=== PATIENT | female | born 2005 | race Caucasian/White ===

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

== ENCOUNTER 2023-09-02 20:08 | Emergency (ER) | payer MEDICAID, SELFPAY ==
[2023-09-02 20:21] VITALS: BP 94/62; PULSE 102; RESP 16; TEMP 36.3; O2SAT 98; BMI 29.5
--- NOTE | 2023-09-02 21:06 | W.ED.HEATRA ---
HPI - Head Injury General: Chief complaint: Head Injury Stated complaint: AHit Her Head Time Seen by Provider: 09/02/23 20:42 History of Present Illness: 18-year-old female comes in today for complaints of injury to the forehead. Patient endorses slipping in the bathroom and striking her head against a soap dish. Patient has no obvious injury to the forehead. Patient reports tenderness to central forehead. Patient denies headache or loss of consciousness. Patient resides at an assisted living facility. Review of Systems General: Reports: 10 or more systems reviewed and unremarkable except in HPI and below PFSH ED PFSH: Medical History Irritable bowel syndrome Chronic constipation Borderline personality disorder Intellectual disability Schizophrenia Surgical History No significant past surgical history Social History Smoking and tobacco/nicotine status: never used tobacco/nicotine Alcohol intake: never Physical Exam Const: COMMON NORMALS: alert HENMT: COMMON NORMALS: normocephalic and atraumatic HEAD & SCALP: normocephalic and atraumatic Neck/C-Spine: COMMON NORMALS: full ROM Resp: COMMON NORMALS: normal respiratory effort Cardio: COMMON NORMALS: regular rate RATE: regular rate Back/Pelvis: COMMON NORMALS: thoracic and lumbar spine normal to inspection Extremity: COMMON NORMALS: full ROM Neuro: SENSORIUM/ORIENTATION: Yes alert Skin: COMMON NORMALS: turgor normal GENERAL SKIN EXAM: turgor normal Course Vital Signs: Vital signs: Vital Signs Temperature 97.4 F L 09/02/23 20:21 Pulse Rate 101 H 09/02/23 21:23 Respiratory Rate 16 09/02/23 21:23 Blood Pressure 113/73 09/02/23 21:23 Pulse Oximetry 95 09/02/23 21:23 Oxygen Delivery Me thod Room Air 09/02/23 21:23 MDM - Head Injury Medcial Decision Making 18-year-old female comes in today for complaints of injury to the forehead. Patient reports slipping and striking her head against a soap dish. On exam patient has no obvious injury. No yee are noted to the forehead or scalp. Pupils are equal and reactive. Bilateral TMs are normal. Skin is warm and dry. Patient has good range of motion of neck. Differential diagnosis includes contusion, concussion, neck strain. No signs of serious injury or illnesses noted. Reviewed exam with patient with recommendations for treatment with ice packs and acetaminophen for pain. Patient reported understanding and agreed to plan. No radiology studies performed this visit Discharge Plan Discharge Patient Disposition: Home Clinical Impression: Fall from slipping Qualifiers: Encounter type: initial encounter Qualified Code(s): W01.0XXA - Fall on same level from slipping, tripping and stumbling without subsequent striking against object, initial encounter Forehead contusion Qualifiers: Encounter type: initial encounter Qualified Code(s): S00.83XA - Contusion of other part of head, initial encounter Condition: Stable Prescriptions: No Action hydrocortisone [Anti-Itch (HC)] 1 % cream 1 applic topical BID PRN (Reason: skin irritation) 7 Days Qty: 28.4 0RF sulfamethoxazole-trimethoprim [Bactrim DS] 800-160 mg tablet 1 tab PO BID 7 Days Qty: 14 0RF levothyroxine 62.5 mcg capsule 62.5 mcg PO DAILY sennosides-docusate sodium [Senokot-S] 8.6-50 mg tablet 1 tab-cap PO DAILY Qty: 30 11RF Linzess 290 mcg capsule 290 mcg PO QAM Qty: 30 11RF ibuprofen 200 mg Tablet 400 mg PO Q6H PRN (Reason: PAIN/FEVER) dextromethorphan-guaifenesin [Tussin DM] 10-100 mg/5 mL Liquid 5 ml PO Q4H PRN (Reason: Cough) simethicone [Gas Relief Extra Strength] 125 mg capsule See Rx Instructions .ROUTE .COMPLEX Rx Instructions: one tab po qid after meals and at bedtime prn for gas/bloat acetaminophen 500 mg Tablet 500 mg PO Q4H PRN (Reason: Pain) sodium chloride 3 % Mist 2 spray INTRANASAL Q4H PRN (Reason: Nasal Congestion) menthol-zinc oxide [Calmoseptine] 0.44-20.6 % Ointment See Rx Instructions .ROUTE .COMPLEX Rx Instructions: apply topically to buttocks q4h prn hydroxyzine pamoate 25 mg Capsule 25 mg PO TID@08,12,16 magnesium hydroxide [Milk of Magnesia] 400 mg/5 mL Suspension 30 ml PO DAILY PRN (Reason: Constipation) Rx Instructions: IF NO BM FOR 2 DAYS. docusate sodium [Colace] 100 mg capsule 200 mg PO BID ondansetron 4 mg Tablet,Disintegrating 4 mg PO Q8H PRN (Reason: Nausea And Vomiting) Qty: 1 0RF prazosin 5 mg Capsule 5 mg PO QPM atomoxetine 60 mg capsule 60 mg PO DAILY Vistaril 25 mg Capsule 100 mg PO 2000 cetirizine 10 mg Tablet 10 mg PO 0800 montelukast 10 mg Tablet 10 mg PO DAILY PRN (Reason: ALLERGIES) Fleet Enema 19-7 gram/118 mL Enema 133 ml [place] PRN (Reason: Constipation) Rx Instructions: USE CONTENTS OF BOTTLE DAILY WHEN NO BM FOR 3 DAYS nystatin 100,000 unit/gram Cream 1 applic TOPICAL BID PRN (Reason: Skin Irritation) Rx Instructions: APPLY TWIVCE DAILY NEEDED TO AFFECTED AREA. mupirocin 20 MG 1 as directed 3XD PRN (Reason: ABRASION) Rx Instructions: 3X DAILY NEED FOR SORE NEXT TO EYE AND SORE IN NOSE (DME) blood pressure monitor Rx Instructions: BLOOD PRESSURE TAKE ONCE A DAY BEFORE PRAZOSIN Cough Drops 60 MG 1 PO DIRECTED PRN (Reason: SORE THROAT/COUGH) Rx Instructions: 1 LOZENGE NEEDED FOR COUGH OR SORE THROAT. A and D (ovidio, pet) Ointment TOPICAL Rx Instructions: APPLY TO AFFECTED AREA NEEDED calcium carbonate-vitamin D3 500 mg-3.125 mcg (125 unit) Tablet 2 tab PO perphenazine 2 mg Tablet 2 mg PO BID PRN (Reason: Agitation) paliperidone palmitate 156 mg/mL Syringe 156 mg IM Q28D SF 5000 Plus 1.1 % Cream PO BID Rx Instructions: BRUSH WITH PEA SIZE AMOUNT TWICE DAILY pantoprazole 40 MG 40 mg PO DAILY trazodone 100 mg tablet 150 mg PO BEDTIME Rx Instructions: SLEEP AID venlafaxine [Effexor XR] 150 mg capsule,extended release 24hr 150 mg PO DAILY Qty: 30 0RF medroxyprogesterone [Depo-Provera] 150 mg/mL Suspension 150 mg IM Q90D Discharge Orders: Discharge ED (Routine); Ordered 09/02/23 Ordered By: Mando Givens Referrals: Rosalie Johnson FNP [Primary Care Provider] - Discharge Diet: Usual diet Discharge Activity: Increase activity as tolerated Patient Instructions: Head Injury (ED) Activity Restrictions/Additional Instructions: Home and rest. Use acetaminophen as needed for pain. Follow-up with primary care in 3 days for recheck. Return to ED for new concerns. Coding Level of Care Code ED Compression Molding Machine Tender for Brett Love
[2023-09-02] MEDS: acetaminophen 325 mg Tablet 650 MG PO (21:15)
[2023-09-02 21:23] VITALS: BP 113/73; PULSE 101; RESP 16; O2SAT 95
--- NOTE | 2023-09-02 21:52 | PC.NURSE ---
this nurse and kelvin rodriguez RN gave pt and her two caregivers discharge instructions. this nurse also heard kelvin rodriguez RN give pts guardian verbal discharge instructions.
[2023-09-02 21:55] VITALS: BP 113/73; PULSE 101; RESP 16; TEMP 36.3; O2SAT 95
== END 2023-09-02 21:56 | disposition home or self-care (01) ==
PROVIDERS: Emergency Provider Nurse Practitioner Family; PCP Nurse Practitioner Family
DX: S00.83XA Contusion of other part of head, initial encounter (principal); W01.198A Fall on same level from slipping, tripping and stumbling with subsequent striking against other object, initial encounter
CPT/HCPCS: 99283

== ENCOUNTER 2024-01-22 02:01 | Emergency (ER) | payer MEDICAID, SELFPAY ==
[2024-01-22 02:02] VITALS: BP 109/79; PULSE 94; RESP 16; TEMP 36.8; O2SAT 97; BMI 28.3
--- NOTE | 2024-01-22 02:08 | ED_ITS ---
HPI - General Adult General: Chief complaint: Airway/Esophagus Foreign Body Stated complaint: possible foreign body in throat History of Present Illness: Patient brought in by EMS with complaints of foreign body in throat sensation. Patient states she is eating some food today and she thinks she broke her tooth and the tooth is lodged in the upper part of her throat. She says she can feel it and it hurts. Patient is able to eat and drink with no problems. Review of Systems General: Reports: 10 or more systems reviewed and unremarkable except in HPI and below PFSH ED PFSH: Medical History Irritable bowel syndrome Chronic constipation Borderline personality disorder Intellectual disability Schizophrenia Surgical History No significant past surgical history Social History Smoking and tobacco/nicotine status: never used tobacco/nicotine Alcohol intake: never Physical Exam Const: COMMON NORMALS: no acute distress, average body habitus, patient oriented x3, no limitations, healthy appearing, alert and well nourished HENMT: COMMON NORMALS: normocephalic, atraumatic, hearing grossly normal bilaterally, external ears normal, Normal external nose present, moist oral mucous membranes and oropharynx normal HEAD & SCALP: normocephalic and atraumatic NOSE: Normal external nose present EXTERNAL EAR: Yes external ears normal Neck/C-Spine: COMMON NORMALS: full ROM, no lymphadenopathy, supple, no meningeal signs, no JVD and Thyroid normal THYROID: Thyroid normal Chest: COMMONS NORMALS: normal inspection of the chest and normal palpation of entire chest wall Resp: COMMON NORMALS: normal respiratory effort, No retractions, No use of accessory muscles and clear to auscultation bilaterally AUSCULTATION: clear to auscultation bilaterally Cardio: COMMON NORMALS: no JVD, regular rate, regular rhythm, S1 normal heart sound present, S2 normal heart sound present, No gallops present (Cardio), No clicks present (Cardio), No murmurs present (Cardio) and No rub (Cardio) RATE: regular rate RHYTHM: regular rhythm HEART SOUNDS: S1 normal heart sound present and S2 normal heart sound present Neuro: COMMON NORMALS: patient oriented x3 SENSORIUM/ORIENTATION: Yes alert MENINGEAL SIGNS: Yes no meningeal signs Course Vital Signs: Vital signs: Vital Signs Temperature 98.2 F 01/22/24 02:02 Pulse Rate 94 01/22/24 02:02 Respiratory Rate 16 01/22/24 02:02 Blood Pressure 109/79 01/22/24 02:02 Pulse Oximetry 97 01/22/24 02:02 Oxygen Delivery Me thod Room Air 01/22/24 02:02 MDM - General Adult Medical Decision Making X-ray of the soft tissue of the neck was preliminary read off as negative by myself, patient be discharged home. If the radiologist reads it as any other way we will call the patient with results. Differential Diagnosis Dysphagia, foreign body, globus sensation Medical Records I reviewed the patient's medical records. Lab Data I reviewed the patient's lab results. All radiology interpretation(s) finalized by discharge Discharge Plan Discharge Patient Disposition: Home Clinical Impression: Globus sensation Prescriptions: No Action hydrocortisone [Anti-Itch (HC)] 1 % cream 1 applic topical BID PRN (Reason: skin irritation) 7 Days Qty: 28.4 0RF sulfamethoxazole-trimethoprim [Bactrim DS] 800-160 mg tablet 1 tab PO BID 7 Days Qty: 14 0RF silver sulfadiazine [Silvadene] 1 % cream 1 applic topical BID Qty: 50 0RF Rx Instructions: apply a 1.5 mm thickness levothyroxine 62.5 mcg capsule 62.5 mcg PO DAILY sennosides-docusate sodium [Senokot-S] 8.6-50 mg tablet 1 tab-cap PO DAILY Qty: 30 11RF Linzess 290 mcg capsule 290 mcg PO QAM Qty: 30 11RF ibuprofen 200 mg Tablet 400 mg PO Q6H PRN (Reason: PAIN/FEVER) dextromethorphan-guaifenesin [Tussin DM] 10-100 mg/5 mL Liquid 5 ml PO Q4H PRN (Reason: Cough) simethicone [Gas Relief Extra Strength] 125 mg capsule See Rx Instructions .ROUTE .COMPLEX Rx Instructions: one tab po qid after meals and at bedtime prn for gas/bloat acetaminophen 500 mg Tablet 500 mg PO Q4H PRN (Reason: Pain) sodium chloride 3 % Mist 2 spray INTRANASAL Q4H PRN (Reason: Nasal Congestion) menthol-zinc oxide [Calmoseptine] 0.44-20.6 % Ointment See Rx Instructions .ROUTE .COMPLEX Rx Instructions: apply topically to buttocks q4h prn hydroxyzine pamoate 25 mg Capsule 25 mg PO TID@08,12,16 magnesium hydroxide [Milk of Magnesia] 400 mg/5 mL Suspension 30 ml PO DAILY PRN (Reason: Constipation) Rx Instructions: IF NO BM FOR 2 DAYS. docusate sodium [Colace] 100 mg capsule 200 mg PO BID ondansetron 4 mg Tablet,Disintegrating 4 mg PO Q8H PRN (Reason: Nausea And Vomiting) Qty: 1 0RF prazosin 5 mg Capsule 5 mg PO QPM atomoxetine 60 mg capsule 60 mg PO DAILY Vistaril 25 mg Capsule 100 mg PO 2000 cetirizine 10 mg Tablet 10 mg PO 0800 montelukast 10 mg Tablet 10 mg PO DAILY PRN (Reason: ALLERGIES) Fleet Enema 19-7 gram/118 mL Enema 133 ml [place] PRN (Reason: Constipation) Rx Instructions: USE CONTENTS OF BOTTLE DAILY WHEN NO BM FOR 3 DAYS nystatin 100,000 unit/gram Cream 1 applic TOPICAL BID PRN (Reason: Skin Irritation) Rx Instructions: APPLY TWIVCE DAILY NEEDED TO AFFECTED AREA. mupirocin 20 MG 1 as directed 3XD PRN (Reason: ABRASION) Rx Instructions: 3X DAILY NEED FOR SORE NEXT TO EYE AND SORE IN NOSE (DME) blood pressure monitor Rx Instructions: BLOOD PRESSURE TAKE ONCE A DAY BEFORE PRAZOSIN Cough Drops 60 MG 1 PO DIRECTED PRN (Reason: SORE THROAT/COUGH) Rx Instructions: 1 LOZENGE NEEDED FOR COUGH OR SORE THROAT. A and D (ovidio, pet) Ointment TOPICAL Rx Instructions: APPLY TO AFFECTED AREA NEEDED calcium carbonate-vitamin D3 500 mg-3.125 mcg (125 unit) Tablet 2 tab PO perphenazine 2 mg Tablet 2 mg PO BID PRN (Reason: Agitation) paliperidone palmitate 156 mg/mL Syringe 156 mg IM Q28D SF 5000 Plus 1.1 % Cream PO BID Rx Instructions: BRUSH WITH PEA SIZE AMOUNT TWICE DAILY pantoprazole 40 MG 40 mg PO DAILY trazodone 100 mg tablet 150 mg PO BEDTIME Rx Instructions: SLEEP AID venlafaxine [Effexor XR] 150 mg capsule,extended release 24hr 150 mg PO DAILY Qty: 30 0RF medroxyprogesterone [Depo-Provera] 150 mg/mL Suspension 150 mg IM Q90D Discharge Orders: Discharge ED (Routine); Ordered 01/22/24 Ordered By: Zhang Bryson Referrals: Rosalie Johnson FNP [Primary Care Provider] - 1 week Activity Restrictions/Additional Instructions: We had an x-ray of your neck performed in the ER did not show any foreign body in your esophagus. When the radiologist reads it if he sees anything else we will give you a call. Otherwise please follow-up with your family practice physician in the next 7 to 10 days for further evaluation and treatment. Coding Level of Care Code ED Food Mobile Driver for Brett Love
--- NOTE | 2024-01-22 02:13 | XRR_ITS ---
PROCEDURE INFORMATION: Exam: XR Soft Tissue Neck Exam date and time: 01/22/2024 2:32 AM Age: 18 years old Clinical indication: Dysphagia / difficulty swallowing; Additional info: Dysphagia, thinks swallowed a tooth and hung in throat TECHNIQUE: Imaging protocol: Radiologic exam of the soft tissues of the neck. COMPARISON: CT cervical spin wo con* [id number] 07/07/2022 5:38 PM FINDINGS: Airway: Normal. No abnormal narrowing. Soft tissues: Normal. Normal epiglottis. Bones/joints: Unremarkable. XR/XR soft tissue neck [id number] IMPRESSION: No acute findings. No foreign body or dislodged tooth noted.
[2024-01-22 04:15] VITALS: BP 101/72; PULSE 89; O2SAT 98
--- NOTE | 2024-01-22 05:02 | PC.NURSE ---
rhett hinson phone call this nurse phoned rhett hinson to give dc instructions. message left to call back.
[2024-01-22 05:05] VITALS: BP 109/70; PULSE 98; O2SAT 98
[2024-01-22 05:07] VITALS: BP 109/70; PULSE 105; O2SAT 98
== END 2024-01-22 05:07 | disposition home or self-care (01) ==
PROVIDERS: Emergency Provider Emergency Medicine; PCP Nurse Practitioner Family
DX: F45.8 Other somatoform disorders (principal)
CPT/HCPCS: 70360; 99283

== ENCOUNTER → 2024-03-24 13:52 | Outpatient (BNVA) | payer MEDICAID, SELFPAY | PROVIDERS: PCP Nurse Practitioner Family; Visit Provider Nurse Practitioner Women's Health | DX: N89.8 Other specified noninflammatory disorders of vagina (principal); F52.8 Other sexual dysfunction not due to a substance or known physiological condition | CPT/HCPCS: 81000; 87086 ==

== ENCOUNTER 2024-12-31 11:42 | Emergency (ER) | payer MEDICAID, SELFPAY ==
[2024-12-31 12:06] VITALS: BP 95/75; PULSE 100; RESP 16; TEMP 36.4; O2SAT 98
[2024-12-31 13:31] LABS: Basophils % 0.3 %; Eosinophils # 0.2 10^3/uL (0.0-0.8); Eosinophils % 2.3 %; Hematocrit 42.3 % (36-47); Lymphocytes # 2.3 10^3/uL (0.8-4.8); Mean Corpuscular HGB Conc 32.6 g/dL (30-55); Mean Corpuscular Hemoglobin 30.1 pg (27-33); Mean Corpuscular Volume 92.4 fl (85-98); Mean Platelet Volume 9.8 fL (7.4-10.4); Monocytes # 0.4 10^3/uL (0.2-0.9); Monocytes % 5.6 %; Neutrophils # 4.66 10^3/uL (1.8-7.7); Neutrophils % 61.7 %; Nucleated Red Blood Cells % 0 %; Platelet Count 203 10^3/cmm (157-399); Red Blood Count 4.58 10^6/uL (3.85-5.65); White Blood Count 7.54 10^3/uL (3.29-11.43)
[2024-12-31 14:02] LABS: Alanine Aminotransferase 24 U/L (0-33); Albumin Level 4.8 g/dL (3.5-5.2); Alkaline Phosphatase 77 U/L (35-105); Aspartate Amino Transferase 19 U/L (0-32); Blood Urea Nitrogen 17 mg/dL (6-20); Calcium 9.9 mg/dL (8.5-10.5); Carbon Dioxide 21 mmol/L (22-29); Chloride 102 mmol/L (98-107); Creatinine Clr Calc Pharmacy 91.7613; Globulin 3.5 g/dL (1.3-4.6); Glucose 70 mg/dL (65-115); Lipase 72 U/L (13-60); Osmolality Calculated 282 mOsm/kg (285-295); Sodium 136 mmol/L (136-145); Total Bilirubin 0.2 mg/dL (0.15-1.2); Total Protein 8.3 g/dL (6.6-8.7)
[2024-12-31 14:05] LABS: Anion Gap 16.7 (5-19); Potassium 3.7 mmol/L (3.5-5.1)
[2024-12-31 14:11] LABS: Bilirubin Urine Negative (Negative); Blood Urine Negative (Negative); Glucose Urine UA Negative (Normal); Ketones Urine Negative (Negative); Leukocyte Esterase Urine 1+ (Negative); Nitrate Urine Negative (Negative); Protein Urine Negative (Negative); Specific Gravity, Urine 1.017 (1.005-1.030); Urine Appearance Clear (CLEAR); Urine Color Yellow (Yellow); Urobilinogen Urine 0.2 mg/dL (Negative)
[2024-12-31 14:13] LABS: Add Urine Microscopic? YES; Bacteria Urine None Seen /hpf; Hyaline Casts Urine 0-4 /lpf; RBC Urine 0-2 /hpf (0-2); Squamous Epithelial Cell Urine 0-5 /hpf (0-5); WBC Urine 0-5 /hpf (0-5)
--- NOTE | 2024-12-31 14:16 | ED_ITS ---
HPI - Abdominal Pain 2 General: Chief Complaint: Recheck/Abnormal Lab/Rx Stated Complaint: dr tello, abnormal xray Time Seen by Provider: 12/31/24 13:58 Source: patient Mode of arrival: ambulatory Limitations: no limitations History of Present Illness: Patient is a 19-year-old female presents to ED today with after she was seen at [facility] and referred to the emergency department due to a fecal impaction . I have seen patient previously several times for identical symptoms. She is complaining of some mild mid abdominal pain. She is eating and drinking normally. She has not had any episodes of vomiting. She does take stool softeners and occasional laxatives as needed. She states she has been having diarrhea lately and does not know the last time she had a normal bowel movement. She has not been running fevers. She clinically appears in no acute distress. MD elicited complaint: abdominal pain Pertinent past history: constipation (fecal impactions) Onset (ago): day(s) Pain Consistency: constant Location: Diffuse Severity: mild Radiation: none Migration to: no migration Exacerbating factors: nothing Relieving factors: nothing Associated Symptoms: Reports constipation; Denies chills, diarrhea, dysuria, fever(s), hematochezia, hematuria, melena, nausea and vomiting Related Data Home Medications ?Medication ?Instructions ?Recorded ?Confirmed ibuprofen 200 mg tablet 400 mg PO Q6H PRN PAIN/FEVER 04/11/21 03/24/24 acetaminophen 500 mg tablet 500 mg PO Q4H PRN Pain 12/31/24 hydroxyzine pamoate 25 mg capsule 25 mg PO TID@08,12,1 6 12/18/21 12/31/24 magnesium hydroxide 400 mg/5 mL 30 ml PO DAILY PRN Con stipation 12/18/21 12/31/24 oral suspension (Milk of Magnesia) medroxyprogesterone 150 mg/mL 150 mg IM Q90D 01/08/22 12/31/24 intramuscular suspension (Depo-Provera) docusate sodium 100 mg capsule 200 mg PO BID 05/30/22 12/31/24 (Colace) blood pressure monitor 12/15/22 12/31/24 cetirizine 10 mg tablet 10 mg PO 0800 12/15/2212/31 fluoride (sodium) 1.1 % dental applic PO BID 12/15/22 03/24/24 cream (SF 5000 Plus) hydroxyzine pamoate 25 mg capsule 100 mg PO 12/1503/24/24 (Vistaril) paliperidone palmitate 156 mg/mL 156 mg IM Q28D AGGRES MOHAMUD AND MOOD 12/15/22 03/24/24 intramuscular syringe pantoprazole 40 mg PO DAILY ACID REFLUX 0 12/15/22 12/31/24 vitamins A and D-white 1 applic topical PRN PRN Ski n 12/15/22 12/31/24 petrolatum-lanolin topical Irritation ointment (A and D (lanolin-petrolatum) topical ointment) montelukast 10 mg tablet 10 mg PO DAILY ALLERGIES 09/2203/24/24 trazodone 100 mg tablet 200 mg PO BEDTIME 02/29/24 0 03/24/24 calcium 600 mg (as 1 tab PO BID 12/31/24 carbonate)-vitamin D3 5 mcg (200 unit) tablet hydroxyzine HCl 25 mg tablet 100 mg PO BEDTIME 5 12/31/24 ibuprofen 200 mg tablet 400 mg PO Q6H PRN Pain 12/3112/31/24 levothyroxine 50 mcg capsule 50 mcg PO DAILY 12/31/24 12/31/24 linaclotide 290 mcg capsule 290 mcg PO QAM 12/31/24 (Linzess) lithium carbonate 300 mg tablet 300 mg PO BID 12/31/24 12/31/24 mupirocin 2 % topical ointment 1 applic topical TID NH N Skin 12/31/24 12/31/24 Irritation pantoprazole 40 mg tablet,delayed 40 mg PO DAILY 12/3112/31/24 release perphenazine 4 mg tablet 4 mg PO TID 12/31/24 5 prazosin 2 mg capsule See Rx Instructions .Route . COMPLEX 12/31/24 12/31/24 sennosides 8.6 mg-docusate sodium 1 tab-cap PO DAILY 0 12/31/24 12/31/24 50 mg tablet Previous Rx's ?Medication ?Instructions ?Recorded venlafaxine 150 mg 150 mg PO DAILY #30 caps 12/18 capsule,extended release 24 hr (Effexor XR) sodium phosphates 19 gram-7 118 ml NH DAILY PRN consti pation 12/31/24 gram/118 mL enema (Enema) #133 mL Allergies Allergy/AdvReac Type Severity Reaction Status Date / Time Penicillins Allergy Mild ALGY-Hives Verified 03/24/24 10:39 Review of Systems 2 Const: Denies: fever(s), chills, body aches, fatigue or malaise Card: Denies: chest pain Resp: Denies: dyspnea GI: Reports: abdominal pain and constipation; Denies: nausea, vomiting, diarrhea, hematochezia or melena : Denies: flank pain, dysuria or hematuria Musc: Denies: back pain Neuro: Denies: headache(s) or dizziness PFSH ED 2 PFSH: Medical History Irritable bowel syndrome Chronic constipation Borderline personality disorder Intellectual disability Schizophrenia Surgical History No significant past surgical history Social History Smoking and tobacco/nicotine status: never used tobacco/nicotine Alcohol intake: never Physical Exam 2 Const: COMMON NORMALS: no acute distress, alert and well nourished GENERAL APPEARANCE: cooperative OTHER: baseline cognitive delay Eye: COMMON NORMALS: no scleral icterus Resp: COMMON NORMALS: normal respiratory effort and clear to auscultation bilaterally AUSCULTATION: clear to auscultation bilaterally Cardio: COMMON NORMALS: regular rate and regular rhythm RATE: regular rate RHYTHM: regular rhythm GI: INSPECTION: Yes normal to inspection AUSCULTATION: Yes normoactive bowel sounds PALPATION: No Tenderness to palpation present (GI), No Guarding due to palpation present (GI) and No Rigid due to palpation : COMMON NORMALS: Yes no CVA tenderness BLADDER/KIDNEY EXAM: Yes no CVA tenderness Back/Pelvis: COMMON NORMALS: no CVA tenderness Neuro: SENSORIUM/ORIENTATION: Yes alert Course 2 Vital Signs: Vital signs: Vital Signs Temperature 97.6 F 12/31/24 12:06 Pulse Rate 96 12/31/24 14:22 Respiratory Rate 16 12/31/24 12:06 Blood Pressure 104/76 12/31/24 14:22 Pulse Oximetry 98 12/31/24 14:22 Oxygen Delivery Me thod Room Air 12/31/24 14:22 MDM - Abdominal Pain Medical Decision Making Patient is a 19-year-old female with a longstanding history of constipation and fecal impactions here for same symptoms. XR from [facility] reviewed. No concern for obstruction. She was agreeable to one enema here but refused any further interventions. Discussed using enema/suppositories at home to help alleviate her impaction. She was given a prescription for a Fleet enema. Recommend she otherwise follow-up with primary care. Return ED precautions discussed. Medical Records I reviewed the patient's medical records. Lab Data I reviewed the patient's lab results. 12/31/24 13:24 12/31/24 13:24 Labs/Radiology: Laboratory Results WBC 7.54 10^3/uL (3.29-11.43) 12/31/24 13:24 RBC 4.58 10^6/uL (3.85-5.65) 12/31/24 13:24 Hgb 13.80 g/dL (11.27-16.99) 12/31/24 13:24 Hct 42.3 % (36-47) 12/31/24 13:24 MCV 92.4 fl (85-98) 12/31/24 13:24 MCH 30.1 pg (27-33) 12/31/24 13:24 MCHC 32.6 g/dL (30-55) 12/31/24 13:24 RDW 12.0 % (12.1-15.1) L 12/31/24 13:24 Plt Count 203 10^3/cmm (157-399) 12/31/24 13:24 MPV 9.8 fL (7.4-10.4) 12/31/24 13:24 Neut % (Auto) 61.7 % 12/31/24 13:24 Lymph % (Auto) 30.0 % 12/31/24 13:24 Barber % (Auto) 5.6 % 12/31/24 13:24 Eos % (Auto) 2.3 % 12/31/24 13:24 Baso % (Auto) 0.3 % 12/31/24 13:24 Neut # (Auto) 4.66 10^3/uL (1.8-7.7) 12/31/24 13:24 Lymph # (Auto) 2.3 10^3/uL (0.8-4.8) 12/31/24 13:24 Barber # (Auto) 0.4 10^3/uL (0.2-0.9) 12/31/24 13:24 Eos # (Auto) 0.2 10^3/uL (0.0-0.8) 12/31/24 13:24 Baso # (Auto) 0.0 10^3/uL (0.0-0.1) 12/31/24 13:24 Nucleated RBC % (auto) 0 % 12/31/24 13:24 Nucleated RBCs # 0.0 /100WBC 12/31/24 13:24 Sodium 136 mmol/L (136-145) 12/31/24 13:24 Potassium 3.7 mmol/L (3.5-5.1) 12/31/24 13:24 Chloride 102 mmol/L (98-107) 12/31/24 13:24 Carbon Dioxide 21 mmol/L (22-29) L 12/31/24 13:24 Anion Gap 16.7 (5-19) 12/31/24 13:24 BUN 17 mg/dL (6-20) 12/31/24 13:24 Creatinine 1.0 mg/dL (0.5-0.9) H 12/31/24 13:24 GFR Calculation 70.0 mL/min (90-130) L 12/31/24 13:24 Glucose 70 mg/dL (65-115) 12/31/24 13:24 Calculated Osmolality 282 mOsm/kg (285-295) L 12/31/24 13:24 Calcium 9.9 mg/dL (8.5-10.5) 12/31/24 13:24 Total Bilirubin 0.2 mg/dL (0.15-1.2) 12/31/24 13:24 AST 19 U/L (0-32) 12/31/24 13:24 ALT 24 U/L (0-33) 12/31/24 13:24 Alkaline Phosphatase 77 U/L (35-105) 12/31/24 13:24 Total Protein 8.3 g/dL (6.6-8.7) 12/31/24 13:24 Albumin 4.8 g/dL (3.5-5.2) 12/31/24 13:24 Globulin 3.5 g/dL (1.3-4.6) 12/31/24 13:24 Lipase 72 U/L (13-60) H 12/31/24 13:24 Urine Color Yellow (Yellow) 12/31/24 13:53 Urine Appearance Clear (CLEAR) 12/31/24 13:53 Urine pH 6.0 (5-7) 12/31/24 13:53 Ur Specific [place] 1.017 (1.005-1.030) 12/31/24 13:53 Urine Protein Negative (Negative) 12/31/24 13:53 Urine Glucose (UA) Negative (Normal) 12/31/24 13:53 Urine Ketones Negative (Negative) 12/31/24 13:53 Urine Blood Negative (Negative) 12/31/24 13:53 Urine Nitrate Negative (Negative) 12/31/24 13:53 Urine Bilirubin Negative (Negative) 12/31/24 13:53 Urine Urobilinogen 0.2 mg/dL (Negative) 12/31/24 13:53 Ur Leukocyte Esterase 1+ (Negative) A 12/31/24 13:53 Urine RBC 0-2 /hpf (0-2) 12/31/24 13:53 Urine WBC 0-5 /hpf (0-5) 12/31/24 13:53 Ur Squamous Epith Cells 0-5 /hpf (0-5) 12/31/24 13:53 Amorphous Sediment Not Reportable 12/31/24 13:53 Urine Bacteria None seen /hpf (NONE) 12/31/24 13:53 Hyaline Casts 0-4 /lpf H 12/31/24 13:53 XR interpretation done by ED provider, pending radiology final review Discharge Plan Discharge Patient Disposition: Home Clinical Impression: Impacted, fecal Condition: Stable Prescriptions: New Enema 19-7 gram/118 mL enema 118 ml NH DAILY PRN (Reason: constipation) Qty: 133 0RF No Action levothyroxine 62.5 mcg capsule 50 mcg PO DAILY ibuprofen 200 mg Tablet 400 mg PO Q6H PRN (Reason: PAIN/FEVER) acetaminophen 500 mg Tablet 500 mg PO Q4H PRN (Reason: Pain) hydroxyzine pamoate 25 mg Capsule 25 mg PO TID@08,12,16 magnesium hydroxide [Milk of Magnesia] 400 mg/5 mL Suspension 30 ml PO DAILY PRN (Reason: Constipation) Rx Instructions: IF NO BM FOR 2 DAYS. docusate sodium [Colace] 100 mg capsule 200 mg PO BID prazosin 5 mg Capsule 5 mg PO QPM Vistaril 25 mg Capsule 100 mg PO 2000 cetirizine 10 mg Tablet 10 mg PO 0800 mupirocin 20 MG 1 as directed 3XD PRN (Reason: ABRASION) Rx Instructions: 3X DAILY NEED FOR SORE NEXT TO EYE AND SORE IN NOSE (DME) blood pressure monitor Rx Instructions: BLOOD PRESSURE TAKE ONCE A DAY BEFORE PRAZOSIN vits A and D-white pet-lanolin [A and D (lanolin-petrolatum)] Ointment 1 applic TOPICAL PRN PRN (Reason: Skin Irritation) Rx Instructions: APPLY TO AFFECTED AREA NEEDED paliperidone palmitate 156 mg/mL Syringe 156 mg IM Q28D SF 5000 Plus 1.1 % Cream PO BID Rx Instructions: BRUSH WITH PEA SIZE AMOUNT TWICE DAILY pantoprazole 40 MG 40 mg PO DAILY montelukast 10 mg tablet 10 mg PO DAILY trazodone 100 mg tablet 200 mg PO BEDTIME Rx Instructions: SLEEP AID venlafaxine [Effexor XR] 150 mg capsule,extended release 24hr 150 mg PO DAILY Qty: 30 0RF medroxyprogesterone [Depo-Provera] 150 mg/mL Suspension 150 mg IM Q90D calcium carbonate-vitamin D3 [Calcium + D] 600 mg-5 mcg (200 unit) Tablet 1 tab PO BID ibuprofen 200 mg tablet 400 mg PO Q6H PRN (Reason: Pain) pantoprazole 40 mg Tablet,Delayed Release (Dr/Ec) 40 mg PO DAILY Linzess 290 mcg capsule 290 mcg PO QAM perphenazine 4 mg Tablet 4 mg PO TID Discharge Orders: Discharge ED (Routine); Ordered 12/31/24 Ordered By: Annette Romero Referrals: Rosalie Johnson FNP [Primary Care Provider, Unknown] Patient Instructions: Constipation (DC), Fecal Impaction (ED), Fleet Enema (ED) Activity Restrictions/Additional Instructions: As we discussed, we did attempt one enema here with small results. Recommended we reattempt another one but patient adamantly refuses. I will prescribe a fleet enema she can do at home. She needs to return the emergency department for onset of severe and constant abdominal pain, repetitive episodes of vomiting, inability to eat or drink, or any other concerns you may have. Otherwise she can follow-up with her primary care provider. Print Language: Chinese Coding Level of Care Code ED Director [employer] Services for [facility] [employer]
[2024-12-31 14:22] VITALS: BP 104/76; PULSE 96; O2SAT 98
--- NOTE | 2024-12-31 16:17 | PC.NURSE ---
STAFF VERBALIZED UNDERSTANDING OF DC SUMMARY. PATIENT AMBULATORY UPON DC. ADDED WRITTEN DIRECTIONS TO ADMIN MILK OF MAG AND CONTINUE STOOL SOFTENERS PER MARGIE STINSON.
== END 2024-12-31 16:17 | disposition home or self-care (01) ==
PROVIDERS: Family Medicine; Emergency Provider Physician Assistant; PCP Nurse Practitioner Family
DX: K56.41 Fecal impaction (principal)
CPT/HCPCS: 36415; 80053; 81001; 83690; 85025; 99283

== ENCOUNTER 2025-06-13 12:07 | Inpatient (IN) | payer MEDICAID, SELFPAY ==
[2025-06-13 12:18] VITALS: BP 102/71; PULSE 111; RESP 17; TEMP 36.6; O2SAT 96; BMI 33.7
--- NOTE | 2025-06-13 12:45 | W.ED.PSYCHS ---
Documented by User: ANGEL Moody 06/13/25 13:47 HPI - Psych General: Chief Complaint: Psychiatric Symptoms Stated Complaint: MHE Hit head on wall History of Present Illness: Patient is a 19-year-old female with guardian, presents to the ED from long-term after hitting her head on a metal bar. Patient states she was anxious, and just wanted to be left alone. According to staff, patient went outside, and started hitting her head on a metal bar. She states she was stressed out, and admits self-harm. Denies suicide plan. Denies suicide thoughts. [facility] relates that patient had a phone call with biological mother on Sunday, 5 days ago, which has led to self-harm in the past. Selected Entries 06/13/25 12:18 ED Triage Comment PT ARRIVES WITH AMAIRANI LONG. PT STATES SHE DIDN 'T LIKE [employer] FOLLOWIN G HER AROUND SO SH Amarilis HAD AN OUTBURST AND HIT HER HEAD O N A METAL POLE. PT DENIES ANY LOC. P T DENIES ANY SI, H I, OR HALLUCINATIO NS. PT STATES SHE HIT HER HEAD BECAU SE SHE WAS UPSET. complaint: feels depressed Associated symptoms: Reports suicidal ideation (per staff) Related Data Home Medications ?Medication ?Instructions ?Recorded ?Confirmed acetaminophen 500 mg tablet 500 mg PO Q4H PRN Pain 11/15/21 06/13/25 magnesium hydroxide 400 mg/5 mL 30 ml PO DAILY PRN Constipation 12/18/21 06/13/25 oral suspension (Milk of Magnesia) medroxyprogesterone 150 mg/mL 150 mg IM Q90D 01/08/22 06/13/25 intramuscular suspension (Depo-Provera) docusate sodium 100 mg capsule 200 mg PO BID 05/30/22 06/13/25 (Colace) blood pressure monitor 12/15/22 06/13/25 cetirizine 10 mg tablet 10 mg PO 0800 12/15/22 06/13/25 paliperidone palmitate 156 mg/mL 156 mg IM Q28D AGGRESSION AND MOOD 12/15/22 06/13/25 intramuscular syringe montelukast 10 mg tablet 10 mg PO DAILY ALLERGIES 02/29/24 06/13/25 trazodone 100 mg tablet 200 mg PO BEDTIME 02/29/24 06/13/25 calcium 600 mg (as 1 tab PO BID 12/31/24 06/13/25 carbonate)-vitamin D3 5 mcg (200 unit) tablet hydroxyzine HCl 25 mg tablet 100 mg PO BEDTIME 12/31/24 06/13/25 ibuprofen 200 mg tablet 400 mg PO Q6H PRN Pain 12/31/24 06/13/25 levothyroxine 50 mcg capsule 50 mcg PO QAM 12/31/24 06/13/25 linaclotide 290 mcg capsule 290 mcg PO QAM 12/31/24 06/13/25 (Linzess) lithium carbonate 300 mg tablet 300 mg PO BID 12/31/24 06/13/25 pantoprazole 40 mg tablet,delayed 40 mg PO DAILY 12/31/24 06/13/25 release prazosin 2 mg capsule See Rx Instructions .Route .COMPLEX 12/31/24 06/13/25 Previous Rx's ?Medication ?Instructions ?Recorded venlafaxine 150 mg 150 mg PO DAILY #30 caps 12/01/21 capsule,extended release 24 hr (Effexor XR) Allergies Allergy/AdvReac Type Severity Reaction Status Date / Time Penicillins Allergy Mild ALGY-Hives Verified 03/24/24 10:39 Review of Systems General: Reports: 10 or more systems reviewed and unremarkable except in HPI and below Const: Denies: fever(s), chills, body aches, fatigue or malaise Eyes: Denies: change in vision or blurry vision Card: Denies: chest pain or palpitations Resp: Denies: dyspnea or non-productive cough GI: Denies: abdominal pain, nausea, vomiting, hematochezia or melena : Denies: flank pain, dysuria or hematuria Musc: Denies: neck pain or back pain Neuro: Denies: headache(s) or dizziness Psych: Reports: anxiety, mood swings, loss of interest and suicidal ideation (per staff) PFSH ED PFSH: Medical History (Updated 06/13/25 @ 13:08 by ANGEL Moody) Irritable bowel syndrome Chronic constipation Borderline personality disorder Intellectual disability Schizophrenia Surgical History No significant past surgical history Social History Smoking and tobacco/nicotine status: never used tobacco/nicotine Alcohol intake: never Physical Exam Const: COMMON NORMALS: no acute distress, alert and well nourished GENERAL APPEARANCE: cooperative HENMT: COMMON NORMALS: normocephalic, atraumatic and hearing grossly normal bilaterally HEAD & SCALP: normocephalic and atraumatic Eye: COMMON NORMALS: no scleral icterus Lymph: LYMPHATIC: no lymphadenopathy noted Resp: COMMON NORMALS: normal respiratory effort and clear to auscultation bilaterally AUSCULTATION: clear to auscultation bilaterally Cardio: COMMON NORMALS: regular rate and regular rhythm RATE: regular rate RHYTHM: regular rhythm GI: INSPECTION: Yes normal to inspection AUSCULTATION: Yes normoactive bowel sounds PALPATION: No Tenderness to palpation present (GI), No Guarding due to palpation present (GI) and No Rigid due to palpation : COMMON NORMALS: Yes no CVA tenderness BLADDER/KIDNEY EXAM: Yes no CVA tenderness Back/Pelvis: COMMON NORMALS: no CVA tenderness Extremity: COMMON NORMALS: normal to inspection, full ROM and capillary refill normal Neuro: SENSORIUM/ORIENTATION: Yes alert Psych: COMMON NORMALS: cooperative SPEECH: Yes excessive, Yes rapid and Yes Pressured speech present MOOD & AFFECT: Yes fearful and Yes expansive affect Skin: COMMON NORMALS: no rashes or lesions noted and no wounds GENERAL SKIN EXAM: no rashes or lesions noted Course Consultations: Consultation #[id number]: [id number]: Dr. Mondragon accepted patient Vital Signs: Vital signs: Vital Signs Temperature 97.9 F 06/13/25 12:18 Pulse Rate 111 H 06/13/25 12:18 Respiratory Rate 17 06/13/25 12:18 Blood Pressure 102/71 06/13/25 12:18 Pulse Oximetry 96 06/13/25 12:18 Oxygen Delivery Me thod Room Air 06/13/25 12:18 MDM - Psych Medical Decision Making Patient is a 19-year-old female that presents to the ED after hitting her head on a metal pole outside of her long-term. Patient stated the staff was following her, irritating her, and she went outside because she would be alone, and was not trying to hurt herself. Staff notes that she was upset, not following redirections, and purposely caused harm to her head by hitting it on a metal pole. She does not have a laceration or injury. She is willing to go to psychiatric hold. She has guardianship. Guardianship agrees. Affidavit on the chart from the staff. Medical Records I reviewed the patient's medical records. Lab Data 06/13/25 12:40 06/13/25 12:40 Laboratory Results WBC 7.02 10^3/uL (3.29-11.43) 06/13/25 12:40 RBC 4.35 10^6/uL (3.85-5.65) 06/13/25 12:40 Hgb 12.80 g/dL (11.27-16.99) 06/13/25 12:40 Hct 39.0 % (36-47) 06/13/25 12:40 MCV 89.7 fl (85-98) 06/13/25 12:40 MCH 29.4 pg (27-33) 06/13/25 12:40 MCHC 32.8 g/dL (30-55) 06/13/25 12:40 RDW 12.1 % (12.1-15.1) 06/13/25 12:40 Plt Count 128 10^3/cmm (157-399) L 06/13/25 12:40 MPV 10.2 fL (7.4-10.4) 06/13/25 12:40 Neut % (Auto) 64.1 % 06/13/25 12:40 Lymph % (Auto) 28.3 % 06/13/25 12:40 [place] % (Auto) 5.3 % 06/13/25 12:40 Eos % (Auto) 1.7 % 06/13/25 12:40 Baso % (Auto) 0.3 % 06/13/25 12:40 Neut # (Auto) 4.50 10^3/uL (1.8-7.7) 06/13/25 12:40 Lymph # (Auto) 2.0 10^3/uL (0.8-4.8) 06/13/25 12:40 [place] # (Auto) 0.4 10^3/uL (0.2-0.9) 06/13/25 12:40 Eos # (Auto) 0.1 10^3/uL (0.0-0.8) 06/13/25 12:40 Baso # (Auto) 0.0 10^3/uL (0.0-0.1) 06/13/25 12:40 Nucleated RBC % (auto) 0 % 06/13/25 12:40 Nucleated RBCs # 0.0 /100WBC 06/13/25 12:40 Sodium 138 mmol/L (136-145) 06/13/25 12:40 Potassium 3.5 mmol/L (3.5-5.1) 06/13/25 12:40 Chloride 107 mmol/L (98-107) 06/13/25 12:40 Carbon Dioxide 19 mmol/L (22-29) L 06/13/25 12:40 Anion Gap 15.5 (5-19) 06/13/25 12:40 BUN 15 mg/dL (6-20) 06/13/25 12:40 Creatinine 1.1 mg/dL (0.5-0.9) H 06/13/25 12:40 GFR Calculation 62.7 mL/min (90-130) L 06/13/25 12:40 Glucose 147 mg/dL (65-115) H 06/13/25 12:40 Calculated Osmolality 290 mOsm/kg (285-295) 06/13/25 12:40 Calcium 9.4 mg/dL (8.5-10.5) 06/13/25 12:40 Total Bilirubin 0.2 mg/dL (0.15-1.2) 06/13/25 12:40 AST 16 U/L (0-32) 06/13/25 12:40 ALT 19 U/L (0-33) 06/13/25 12:40 Alkaline Phosphatase 65 U/L (35-105) 06/13/25 12:40 Total Protein 6.6 g/dL (6.6-8.7) 06/13/25 12:40 Albumin 4.5 g/dL (3.5-5.2) 06/13/25 12:40 Globulin 2.1 g/dL (1.3-4.6) 06/13/25 12:40 TSH 2.49 uIU/mL (0.27-4.20) 06/13/25 12:40 HCG, Qual Negative (Negative) 06/13/25 13:19 Salicylates < 0.3 mg/dL (3-10) L 06/13/25 12:40 Urine Opiates Screen Negative ng/mL (Negative) 06/13/25 13:19 Acetaminophen < 5.0 ug/mL (10-30) L 06/13/25 12:40 Ur Barbiturates Screen Negative ng/mL (Negative) 06/13/25 13:19 Ur Phencyclidine Scrn Negative ng/mL (Negative) 06/13/25 13:19 Ur Amphetamines Screen Negative ng/mL (Negative) 06/13/25 13:19 U Benzodiazepines Scrn Negative ng/mL (Negative) 06/13/25 13:19 Urine Cocaine Screen Negative ng/mL (Negative) 06/13/25 13:19 U Marijuana (THC) Screen Negative ng/mL (Negative) 06/13/25 13:19 Ethyl Alcohol < 10 mg/dL (0-10) 06/13/25 12:40 No radiology studies performed this visit EKG Data EKG 1: Interpretation: Normal sinus rhythm, no ST segment elevation Discharge Plan Discharge Patient Disposition: Xfer Psychiatric Hosp Clinical Impression: Acute psychosis, Suicidal ideation, Acute anxiety Condition: Stable Referrals: Rosalie Johnson FNP [Primary Care Provider, Unknown] Discharge Diet: Usual diet Discharge Activity: Resume usual activity Print Language: Chinese Coding Level of Care Code ED [employer] 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 Fwd Documented by User: Gilbert Lipscomb DO 06/13/25 13:50 HPI - Psych General: Chief Complaint: Psychiatric Symptoms Stated Complaint: MHE Hit head on wall Related Data Home Medications ?Medication ?Instructions ?Recorded ?Confirmed acetaminophen 500 mg tablet 500 mg PO Q4H PRN Pain 11/15/21 06/13/25 magnesium hydroxide 400 mg/5 mL 30 ml PO DAILY PRN Constipation 12/18/21 06/13/25 oral suspension (Milk of Magnesia) medroxyprogesterone 150 mg/mL 150 mg IM Q90D 01/08/22 06/13/25 intramuscular suspension (Depo-Provera) docusate sodium 100 mg capsule 200 mg PO BID 05/30/22 06/13/25 (Colace) blood pressure monitor 12/15/22 06/13/25 cetirizine 10 mg tablet 10 mg PO 0800 12/15/22 06/13/25 paliperidone palmitate 156 mg/mL 156 mg IM Q28D AGGRESSION AND MOOD 12/15/22 06/13/25 intramuscular syringe montelukast 10 mg tablet 10 mg PO DAILY ALLERGIES 02/29/24 06/13/25 trazodone 100 mg tablet 200 mg PO BEDTIME 02/29/24 06/13/25 calcium 600 mg (as 1 tab PO BID 12/31/24 06/13/25 carbonate)-vitamin D3 5 mcg (200 unit) tablet hydroxyzine HCl 25 mg tablet 100 mg PO BEDTIME 12/31/24 06/13/25 ibuprofen 200 mg tablet 400 mg PO Q6H PRN Pain 12/31/24 06/13/25 levothyroxine 50 mcg capsule 50 mcg PO QAM 12/31/24 06/13/25 linaclotide 290 mcg capsule 290 mcg PO QAM 12/31/24 06/13/25 (Linzess) lithium carbonate 300 mg tablet 300 mg PO BID 12/31/24 06/13/25 pantoprazole 40 mg tablet,delayed 40 mg PO DAILY 12/31/24 06/13/25 release prazosin 2 mg capsule See Rx Instructions .Route .COMPLEX 12/31/24 06/13/25 Previous Rx's ?Medication ?Instructions ?Recorded venlafaxine 150 mg 150 mg PO DAILY #30 caps 12/01/21 capsule,extended release 24 hr (Effexor XR) Allergies Allergy/AdvReac Type Severity Reaction Status Date / Time Penicillins Allergy Mild ALGY-Hives Verified 03/24/24 10:39 [facility] ED [facility]: Medical History (Updated 06/13/25 @ 13:08 by ANGEL Moody) Irritable bowel syndrome Chronic constipation Borderline personality disorder Intellectual disability Schizophrenia Surgical History No significant past surgical history Social History Smoking and tobacco/nicotine status: never used tobacco/nicotine Alcohol intake: never Course Vital Signs: Vital signs: Vital Signs Temperature 97.9 F 06/13/25 12:18 Pulse Rate 111 H 06/13/25 12:18 Respiratory Rate 17 06/13/25 12:18 Blood Pressure 102/71 06/13/25 12:18 Pulse Oximetry 96 06/13/25 12:18 Oxygen Delivery Me thod Room Air 06/13/25 12:18 MDM - Psych Medical Decision Making Patient is a 19-year-old female that presents to the ED after hitting her head on a metal pole outside of her long-term. Patient stated the staff was following her, irritating her, and she went outside because she would be alone, and was not trying to hurt herself. Staff notes that she was upset, not following redirections, and purposely caused harm to her head by hitting it on a metal pole. She does not have a laceration or injury. She is willing to go to psychiatric hold. She has guardianship. Guardianship agrees. Affidavit on the chart from the staff. Chart reviewed and patient discussed with midlevel. Agree with assessment and plan. Lab Data 06/13/25 12:40 06/13/25 12:40 Laboratory Results WBC 7.02 10^3/uL (3.29-11.43) 06/13/25 12:40 RBC 4.35 10^6/uL (3.85-5.65) 06/13/25 12:40 Hgb 12.80 g/dL (11.27-16.99) 06/13/25 12:40 Hct 39.0 % (36-47) 06/13/25 12:40 MCV 89.7 fl (85-98) 06/13/25 12:40 MCH 29.4 pg (27-33) 06/13/25 12:40 MCHC 32.8 g/dL (30-55) 06/13/25 12:40 RDW 12.1 % (12.1-15.1) 06/13/25 12:40 Plt Count 128 10^3/cmm (157-399) L 06/13/25 12:40 MPV 10.2 fL (7.4-10.4) 06/13/25 12:40 Neut % (Auto) 64.1 % 06/13/25 12:40 Lymph % (Auto) 28.3 % 06/13/25 12:40 [place] % (Auto) 5.3 % 06/13/25 12:40 Eos % (Auto) 1.7 % 06/13/25 12:40 Baso % (Auto) 0.3 % 06/13/25 12:40 Neut # (Auto) 4.50 10^3/uL (1.8-7.7) 06/13/25 12:40 Lymph # (Auto) 2.0 10^3/uL (0.8-4.8) 06/13/25 12:40 [place] # (Auto) 0.4 10^3/uL (0.2-0.9) 06/13/25 12:40 Eos # (Auto) 0.1 10^3/uL (0.0-0.8) 06/13/25 12:40 Baso # (Auto) 0.0 10^3/uL (0.0-0.1) 06/13/25 12:40 Nucleated RBC % (auto) 0 % 06/13/25 12:40 Nucleated RBCs # 0.0 /100WBC 06/13/25 12:40 Sodium 138 mmol/L (136-145) 06/13/25 12:40 Potassium 3.5 mmol/L (3.5-5.1) 06/13/25 12:40 Chloride 107 mmol/L (98-107) 06/13/25 12:40 Carbon Dioxide 19 mmol/L (22-29) L 06/13/25 12:40 Anion Gap 15.5 (5-19) 06/13/25 12:40 BUN 15 mg/dL (6-20) 06/13/25 12:40 Creatinine 1.1 mg/dL (0.5-0.9) H 06/13/25 12:40 GFR Calculation 62.7 mL/min (90-130) L 06/13/25 12:40 Glucose 147 mg/dL (65-115) H 06/13/25 12:40 Calculated Osmolality 290 mOsm/kg (285-295) 06/13/25 12:40 Calcium 9.4 mg/dL (8.5-10.5) 06/13/25 12:40 Total Bilirubin 0.2 mg/dL (0.15-1.2) 06/13/25 12:40 AST 16 U/L (0-32) 06/13/25 12:40 ALT 19 U/L (0-33) 06/13/25 12:40 Alkaline Phosphatase 65 U/L (35-105) 06/13/25 12:40 Total Protein 6.6 g/dL (6.6-8.7) 06/13/25 12:40 Albumin 4.5 g/dL (3.5-5.2) 06/13/25 12:40 Globulin 2.1 g/dL (1.3-4.6) 06/13/25 12:40 TSH 2.49 uIU/mL (0.27-4.20) 06/13/25 12:40 HCG, Qual Negative (Negative) 06/13/25 13:19 Salicylates < 0.3 mg/dL (3-10) L 06/13/25 12:40 Urine Opiates Screen Negative ng/mL (Negative) 06/13/25 13:19 Acetaminophen < 5.0 ug/mL (10-30) L 06/13/25 12:40 Ur Barbiturates Screen Negative ng/mL (Negative) 06/13/25 13:19 Ur Phencyclidine Scrn Negative ng/mL (Negative) 06/13/25 13:19 Ur Amphetamines Screen Negative ng/mL (Negative) 06/13/25 13:19 U Benzodiazepines Scrn Negative ng/mL (Negative) 06/13/25 13:19 Urine Cocaine Screen Negative ng/mL (Negative) 06/13/25 13:19 U Marijuana (THC) Screen Negative ng/mL (Negative) 06/13/25 13:19 Ethyl Alcohol < 10 mg/dL (0-10) 06/13/25 12:40 Discharge Plan Discharge Patient Disposition: Xfer Psychiatric Hosp Clinical Impression: Acute psychosis, Suicidal ideation, Acute anxiety Condition: Stable Referrals: Rosalie Johnson FNP [Primary Care Provider, Unknown] Discharge Diet: Usual diet Discharge Activity: Resume usual activity Print Language: Chinese Coding Level of Care Code ED [employer] 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
[2025-06-13 12:52] LABS: Hematocrit 39.0 % (36-47); Hemoglobin 12.80 g/dL (11.27-16.99); Mean Corpuscular HGB Conc 32.8 g/dL (30-55); Mean Corpuscular Hemoglobin 29.4 pg (27-33); Mean Corpuscular Volume 89.7 fl (85-98); Nucleated Red Blood Cells % 0 %; Platelet Count 128 10^3/cmm (157-399); Red Blood Count 4.35 10^6/uL (3.85-5.65); White Blood Count 7.02 10^3/uL (3.29-11.43)
--- NOTE | 2025-06-13 13:04 | ECG_ITS ---
[facility] [employer] Test Date: 2025-06-13 Pat Name: Lexy Jackson Department: Room: Gender: Female Form Press Operator: : 2005 Requested By: Lexy Isaac Order Number: [id number] Betsy MD: Víctor Chi M.D. Measurements Intervals [place] Rate: 91 P: 32 ME: 121 QRS: 52 QRSD: 99 T: 39 QT: 361 QTc: 446 Interpretive Statements SINUS RHYTHM MILD ST AND T WAVE ABNORMALITY, CONSIDER ISCHEMIA Compared to ECG 10/23/2022 21:22:57 Short ME interval no longer present NO SIGNIFICANT CHANGE Electronically Signed On 06-14-2025 15:22:51 PHARMACOLOGY TEACHER by Víctor Chi M.D. [email or web address]
[2025-06-13 13:27] LABS: Glucose Urine UA Negative (Normal); HCG Qualitative Urine. Negative (Negative); Nitrate Urine Negative (Negative); Specific Gravity, Urine 1.006 (1.005-1.030)
[2025-06-13 13:30] LABS: Acetaminophen < 5.0 ug/mL (10-30); Alanine Aminotransferase 19 U/L (0-33); Albumin Level 4.5 g/dL (3.5-5.2); Alcohol Level < 10 mg/dL (0-10); Alkaline Phosphatase 65 U/L (35-105); Blood Urea Nitrogen 15 mg/dL (6-20); Calcium 9.4 mg/dL (8.5-10.5); Carbon Dioxide 19 mmol/L (22-29); Chloride 107 mmol/L (98-107); Globulin 2.1 g/dL (1.3-4.6); Glucose 147 mg/dL (65-115); Osmolality Calculated 290 mOsm/kg (285-295); Salicylate < 0.3 mg/dL (3-10); Sodium 138 mmol/L (136-145); Thyroid Stimulating Hormone 2.49 uIU/mL (0.27-4.20); Total Protein 6.6 g/dL (6.6-8.7)
[2025-06-13 13:31] LABS: Add Urine Microscopic? YES
[2025-06-13 13:31] LABS: Anion Gap 15.5 (5-19); Aspartate Amino Transferase 16 U/L (0-32); Potassium 3.5 mmol/L (3.5-5.1)
[2025-06-13 13:36] LABS: PCP Screen Urine Negative (Negative)
--- NOTE | 2025-06-13 13:40 | PC.PHAR ---
Pt is resident at [facility]-caregiver has current med list
[2025-06-13 13:56] LABS: UA Slide Review UA Slide Review Perf
[2025-06-13 13:59] VITALS: BP 99/63; PULSE 95; O2SAT 98
[2025-06-13 14:29] VITALS: BP 104/66; PULSE 104; RESP 18; TEMP 36.5; O2SAT 98
[2025-06-13 14:32] VITALS: BP 104/66; PULSE 104; RESP 18; TEMP 36.5; O2SAT 98
--- NOTE | 2025-06-13 14:36 | PC.NURSE ---
Jessica, patient guardian notified via telephone of patient admission.
--- NOTE | 2025-06-13 14:46 | PC.NURSE ---
Per guardian Jessica, patient has a call limit to talk to Jessica only.
--- NOTE | 2025-06-13 15:23 | PC.ADMIT ---
[email or web address] Admission Note: The patient,Lexy Jackson,19 y/o, was given written information regarding hospital policies, unit procedures and contact persons. Patient's smoking status: never smoked. Vital Signs - 8 hr 06/13/25 12:18 06/13/25 13:59 06/13/25 14:29 Temperature 97.9 F 97.7 F Pulse Rate 111 H 95 104 H Respiratory Rate 17 18 Blood Pressure 102/71 99/63 104/66 Pulse Oximetry 96 98 98 Oxygen Delivery Method Room Air Room Air 06/13/25 14:32 06/13/25 14:48 Temperature 97.7 F Pulse Rate 104 H Respiratory Rate 18 Blood Pressure 104/66 Pulse Oximetry 98 Oxygen Delivery Method Room Air Room Air 19 year old female patient presents to [facility] after staff at her [facility] found patient banging her head on railing. Patient currently denies SI/HI/AVH. She endorses mild anxiety and no depression. Patient states she just got mad at staff and went outside and hit her head on railing. She has a past history of borderline personality disorder, anxiety, mild intellectual impairment and per record SI. Patient affect is appropriate. She is cooperative with the assessment. She is alert to person, place, and situation. Her physical assessment is positive for diminished breath sounds bilateral and trace pedal edema. She denies pain issues currently. Her family history is positive for her mother having depression and her father being an alcoholic. She has 3 brothers Armin, Evaristo and Hola, and one sister Salma. Patient denies a history of alcoholism and drug abuse. Patient guardian Jessica Stallworth can be reached at [phone]. Per Jessica patient has a phone limit to contact her only. Jessica will fax medication list today for verification
[2025-06-13 20:37] VITALS: BP 116/79; PULSE 108; RESP 20; TEMP 36.7; O2SAT 97
[2025-06-14 06:00] VITALS: BP 111/79; PULSE 128; RESP 17; TEMP 36.7; O2SAT 97; BMI 34.0
[2025-06-14] MEDS: calcium carb-vit d 600mg/400unit 1 Tablet 1 EACH PO ×2 (07:57→17:55)
[2025-06-14] MEDS: venlafaxine ER (24HR) 150 mg Capsule PO (07:57)
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
[2025-06-14 14:00] VITALS: BP 120/77; PULSE 91; RESP 18; TEMP 36.6; O2SAT 98
[2025-06-14 20:21] VITALS: BP 106/56; PULSE 118; RESP 19; TEMP 36.6; O2SAT 97
[2025-06-14] MEDS: sennosides-docusate Tablet 1 TAB PO (20:55)
[2025-06-15 06:00] VITALS: BP 115/80; PULSE 115; RESP 19; TEMP 36.9; O2SAT 95
[2025-06-15] MEDS: venlafaxine ER (24HR) 150 mg Capsule PO (08:01)
[2025-06-15] MEDS: calcium carb-vit d 600mg/400unit 1 Tablet 1 EACH PO ×2 (08:35→17:11)
--- NOTE | 2025-06-15 09:47 | PC.NURSE ---
prn Zyprexa Zydis 5 mg given po per pt c/o stated agitation
[2025-06-15 13:55] VITALS: BP 105/69; PULSE 117; RESP 16; TEMP 36.6; O2SAT 99
--- NOTE | 2025-06-15 14:28 | P.NPUPN_ITS ---
Subjective NPU 2 Subjective: 19-year-old female admitted with self-in jurious behavior with a history of mild to moderate cognitive impairment and poor impulse control. She had admitted that she had been banging her head on metal when she had become upset that her previous living facility. She had repeatedly perseverated on wanting to go home. She reported continued problems with mood fluctuations. She had remained cooperative here on the milieu and was redirectable despite complaining of a myriad of medical issues. She had reported having no thoughts of hurting herself or others today. Mental Status Exam 2 MSE Comments: This is an overweight versus obese, short, white female, in hospital scrubs, with limited grooming but adequate eye contact. No abnormal involuntary motor movements except for significant psychomotor activation. She was cooperative with exam but in moderate distress. Speech was mostly normal in rate and volume and child-like. Mood described good, can i go home now. Her affect was labile. Thought process was linear and superficial. Thought content: patient denied suicidal or homicidal ideation, there were no delusions reported or noted, patient denied any auditory or visual hallucinations. Attention and concentration are mostly intact and memory appears unreliable but were not formally tested. She is alert and oriented times three. Insight and judgment limited, impulse control remained impaired. intellectual ability appeared limited. Vitals/I&O/Wt Last Vital Signs Temp 97.9 F 06/15/25 13:55 Pulse 117 H 06/15/25 13:55 Resp 16 06/15/25 13:55 BP 105/69 06/15/25 13:55 Pulse Ox 99 06/15/25 13:55 O2 Del Method Room Air 06/15/25 13:55 Weight last 48 hrs Weight 71.299 kg Data NPU 06/13/25 12:40 06/13/25 12:40 A&P Assessment and plan 1. Intermittent explosive disorder: 2. Suicidal ideation: 3. Borderline personality disorder: 4. Intellectual disability: 5. Schizophrenia: Plan: This is an 19-year-old, white female, with a long history of impulse control issues, mild intellectual disability, having psychosocial stressors in her ISL, presenting now after having a recent acting out behaviors but presenting today denying any problems and wanting to return back home as soon as possible. RECOMMENDATION AND PLAN: 1. Continue current medications including Mcmillin, Trilafon as prescribed. 2. Encourage individual, group, and milieu therapy. 3. Continue q-15 minute checks for safety. 4. We will evaluate for appropriate return to her residential setting. PDMP PDMP Reviewed: Not Reviewed Involuntary Hold Information 2 Hold Status: Legal Status: Active Guardianship 96 Hour Hold: 96 Hour Involuntary Admission: No Attestations NPU 2 Medical Necessity Statement*: Inpatient hospitalization is medically necessary and the clinically appropriate intervention at this time. We will evaluate medications and make changes as indicated. The patient's likely length of stay is 2-4 days. Coding Level of Care Code Acute Code for [facility] Fwd Diagnoses Intermittent explosive disorder F63.81 Suicidal ideation R45.851 Borderline personality disorder F60.3 Intellectual disability F79 Schizophrenia, unspecified type F20.9
[2025-06-15 19:50] VITALS: BP 112/72; PULSE 84; RESP 17; TEMP 36.7; O2SAT 100
[2025-06-15] MEDS: sennosides-docusate Tablet 1 TAB PO (20:02)
[2025-06-16 06:00] VITALS: BP 107/71; PULSE 97; RESP 18; TEMP 36.7; O2SAT 94
[2025-06-16] MEDS: calcium carb-vit d 600mg/400unit 1 Tablet 1 EACH PO (08:40)
[2025-06-16] MEDS: venlafaxine ER (24HR) 150 mg Capsule PO (08:41)
[2025-06-16 14:00] VITALS: BP 112/72; PULSE 108; RESP 16; TEMP 36.8; O2SAT 98
[2025-06-16 14:11] VITALS: BP 107/71; PULSE 97; RESP 18; TEMP 36.7; O2SAT 94
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
== END 2025-06-16 15:41 | disposition home or self-care (01) | DRG 750 ==
LOC: ER 13:08 → NP 13:58
PROVIDERS: Admitting Provider Psychiatry & Neurology Psychiatry; Emergency Provider Physician Assistant; PCP Nurse Practitioner Family; Visit Provider Psychiatry & Neurology Psychiatry
DX: F20.9 Schizophrenia, unspecified (principal); R45.851 Suicidal ideations; F60.3 Borderline personality disorder; F70 Mild intellectual disabilities; E66.9 Obesity, unspecified; Z68.34 Body mass index [BMI] 34.0-34.9, adult; K58.1 Irritable bowel syndrome with constipation; Z62.810 Personal history of physical and sexual abuse in childhood
CPT/HCPCS: 36415; 80053; 80306; 80307; 81001; 81025; 84443; 85025; 93005; 97150; 97165; 99285; J9999; Q0162; Q0163; Q0175